=== PATIENT | male | born 1960 | race Caucasian/White ===

== ENCOUNTER 2017-08-14 19:40 | Emergency (ER) | payer BC ==
[2017-08-14 20:48] VITALS: RESP 16
--- NOTE | 2017-08-14 21:22 | ED PDOC ---
Arrival/HPI - General Chief Complaint: Male Genitourinary Time Seen by Provider: 08/14/17 21:15 Historian: Patient - History of Present Illness Narrative History of Present Illness (Text): 08/14/17 21:22 Gilbert Banks is a 56 year old male, whose past medical history includes CAD with 9 coronary stents and hypertension, who presents to the emergency department accompanied by complaining of recurrent hematuria. Patient states he began passing dark red hematuria earlier today and notes he has been experiencing recurrent hematuria since 02/2017. Patient states he was previously admitted at [facility] for similar complaint twice in the past, told he had an E. coli infection, and placed on antibiotics. Patient denies any abdominal pain, nausea, vomiting, urinary retention, chest pain, shortness of breath, headache, dizziness, or any other complaints. Urologist: Dr. Casper Vazquez Symptom Onset: Gradual Symptom Course: Unchanged Activities at Onset: Light Context: Home Past Medical History - Provider Review Nursing Documentation Reviewed: Yes Family/Social History - Physician Review Nursing Documentation Reviewed: Yes Family/Social History: Unknown Family HX Allergies/Home Meds Allergies/Adverse Reactions: Allergies No Known Allergies Allergy (Verified 08/14/17 20:41) Home Medications: Home Meds Medication Instructions Recorded Confirmed Enalapril Maleate [Vasotec] 10 mg PO BID 08/14/17 08/14/17 Metoprolol Tartrate [Lopressor] 50 mg PO DAILY 08/14/17 08/14/17 Paroxetine HCl [Paxil] 40 mg PO DAILY 08/14/17 08/14/17 Simvastatin [Zocor] 40 mg PO DAILY 08/14/17 08/14/17 Ticagrelor [Brilinta] 60 mg PO BID 08/14/17 08/14/17 Review of Systems - Physician Review All systems were reviewed & negative as marked: Yes - Review of Systems Constitutional: Normal. absent: Fevers Eyes: Normal ENT: Normal Respiratory: Normal. absent: SOB, Cough Cardiovascular: Normal. absent: Chest Pain Gastrointestinal: Normal. absent: Abdominal Pain, Diarrhea, Nausea, Vomiting Genitourinary Male: Hematuria. absent: Urinary Output Changes Musculoskeletal: Normal. absent: Back Pain, Neck Pain Skin: Normal. absent: Rash Neurological: Normal. absent: Headache, Dizziness Endocrine: Normal Hemo/Lymphatic: Normal Psychiatric: Normal Physical Exam Vital Signs Reviewed: Yes Vital Signs Temp Pulse Resp BP Pulse Ox 08/15/17 00:27 98 F 80 16 159/92 H 99 08/14/17 22:25 77 16 159/92 H 99 08/14/17 20:43 98.3 F 70 16 176/116 H 100 Temperature: Afebrile Blood Pressure: Hypertensive Pulse: Regular Respiratory Rate: Normal Appearance: Positive for: Well-Appearing, Non-Toxic, Comfortable Pain Distress: None Mental Status: Positive for: Alert and Oriented X 3 - Systems Exam Head: Present: Atraumatic, Normocephalic Pupils: Present: PERRL Extroacular Muscles: Present: EOMI Conjunctiva: Present: Normal Mouth: Present: Moist Mucous Membranes Neck: Present: Normal Range of Motion Respiratory/Chest: Present: Clear to Auscultation, Good Air Exchange. No: Respiratory Distress, Accessory Muscle Use Cardiovascular: Present: Regular Rate and Rhythm, Normal S1, S2. No: Murmurs Abdomen: No: Tenderness, Distention, Peritoneal Signs Back: Present: Normal Inspection Upper Extremity: Present: Normal Inspection. No: Cyanosis, Edema Lower Extremity: Present: Normal Inspection. No: Edema Neurological: Present: GCS=15, CN II-XII Intact, Speech Normal Skin: Present: Warm, Dry, Normal Color. No: Rashes Psychiatric: Present: Alert, Oriented x 3, Normal Insight, Normal Concentration Medical Decision Making ED Course and Treatment: 08/14/17 21:22 Impression: 56 year old male complaining of recurrent hematuria. Plan: -- Labs, blood type and screen -- Urinalysis, urine cultures -- Reassess and disposition Progress Notes: 08/14/17 22:[address] Casper Vazquez, who is aware and agrees with plan. 08/15/17 00:03 On re-evaluation, pt is well-appearing, in no acute distress. Pt prefers to follow up with Dr. Vazquez in the office. Pt spoke with Dr. Vazquez, who agrees with plan. Pt will be started on antibiotics and was advised to drink plenty of fluids. Pt's urine began to clear here in ER. - Lab Interpretations Lab Results: 08/14/17 22:03 08/14/17 22:03 Lab Results 08/14/17 23:51: Blood Type Confirm O POSITIVE 08/14/17 22:55: Blood Type O POSITIVE, Antibody Screen Negative, BBK History Checked No verified bt 08/14/17 22:03: Urine Color Red, Urine Appearance Cloudy, Urine pH 7.0, Ur Specific [place] 1.025, Urine Protein 100 H, Urine Glucose (UA) Negative, Urine Ketones Negative, Urine Blood Large H, Urine Nitrate Negative, Urine Bilirubin Negative, Urine Urobilinogen 0.2, Ur Leukocyte Esterase Small H, Urine RBC Tntc , Urine WBC Tntc, Ur Epithelial Cells 6 - 8, Urine Bacteria Mod 08/14/17 22:03: WBC 12.5 H, RBC 5.15, Hgb 14.5, Hct 41.7 L, MCV 81.0, MCH 28.2, MCHC 34.8, RDW 13.7, Plt Count 237, MPV 9.7 08/14/17 22:03: Sodium 140, Potassium 4.2, Chloride 101, Carbon Dioxide 30, Anion Gap 13, BUN 9, Creatinine 0.8, Est GFR ( Amer) > 60, Est GFR (Non- Af Amer) > 60, Random Glucose 99, Calcium 9.5, Total Bilirubin 0.3, AST 30, ALT 41, Alkaline Phosphatase 46, Total Protein 7.5, Albumin 4.3, Globulin 3.2, Albumin/Globulin Ratio 1.4 08/14/17 22:03: PT 11.3, INR 0.99, APTT 35.0 I have reviewed the lab results: Yes - Medication Orders Current Medication Orders: Discontinued Medications Cephalexin Monohydrate (Keflex) 500 mg PO ONCE STA PRN Reason: Protocol Stop: 08/15/17 00:11 Last Admin: 08/15/17 00:22 Dose: 500 mg - Scribe Statement The provider has reviewed the documentation as recorded by the Scribsam Cordero All medical record entries made by the Ricardoibsam were at my direction and personally dictated by me. I have reviewed the chart and agree that the record accurately reflects my personal performance of the history, physical exam, medical decision making, and the department course for this patient. I have also personally directed, reviewed, and agree with the discharge instructions and disposition. Disposition/Present on Arrival - Present on Arrival Any Indicators Present on Arrival: No History of DVT/PE: No History of Uncontrolled Diabetes: No Urinary Catheter: No History of Decub. Ulcer: No History Surgical Site Infection Following: None - Disposition Have Diagnosis and Disposition been Completed?: Yes Diagnosis: Hematuria, UTI (urinary tract infection) Disposition: HOME/ ROUTINE Disposition Time: 00:06 Patient Plan: Discharge Condition: STABLE Discharge Instructions (ExitCare): Urinary Tract Infection, Adult (DC), Blood in the Urine (Hematuria), Adult (DC) Additional Instructions: Take meds as prescribed/Drink plenty of liquids/Follow up with your urologist Dr.Shulman marroquin as per his instructions Prescriptions: Cephalexin [cephalexin] 500 mg PO BID #14 cap Referrals: Mauricio Vazquez MD [Primary Care Provider] - Follow up with primary Forms: [employer] (Armenian)
[2017-08-14 22:24] LABS: HEMOGLOBIN 14.5 g/dL (14.0-18.0); MEAN CORPUSCULAR HEMOGLOBIN 28.2 pg (25.0-35.0); MEAN CORPUSCULAR HGB CONC 34.8 g/dl (31.0-37.0); MEAN PLATELET VOLUME 9.7 fl (7.0-11.0); RBC 5.15 10^6/uL (3.5-6.1); RED CELL DISTRIBUTION WIDTH 13.7 % (11.5-14.5); WHITE BLOOD COUNT 12.5 10^3/ul (4.5-11.0)
[2017-08-14 22:35] LABS: ALB/GLOB RATIO 1.4 (1.1-1.8); ALBUMIN 4.3 g/dL (3.0-4.8); ALT/SGPT 41 U/L (7-56); AST/SGOT 30 U/L (17-59); BLOOD UREA NITROGEN 9 mg/dL (7-21); CALCIUM 9.5 mg/dL (8.4-10.5); GFR AFRICAN-AMERICAN > 60; GFR NON-AFRICAN AMERICAN > 60; INR 0.99 (0.93-1.08); PROTHROMBIN TIME 11.3 SECONDS (9.4-12.5)
[2017-08-14 22:40] LABS: URINE BILIRUBIN NEGATIVE (NEGATIVE); URINE BLOOD LARGE (NEGATIVE); URINE GLUCOSE (UA) NEGATIVE (NEGATIVE); URINE LEUKOCYTE ESTERASE SMALL Leu/uL (NEGATIVE); URINE PROTEIN 100 mg/dL (<30 mg/dL); URINE UROBILINOGEN 0.2 E.U./dL (<1 E.U./dL)
[2017-08-14 22:57] LABS: URINE COLOR RED (YELLOW)
[2017-08-14 22:58] LABS: URINE APPEARANCE CLOUDY (CLEAR)
[2017-08-14 23:01] LABS: URINE BACTERIA MOD (NEG); URINE RBC TNTC /hpf (0-2); URINE WBC TNTC /hpf (0-6)
[2017-08-15 00:26] VITALS: BP 159/92; O2SAT 99
[2017-08-15 00:28] VITALS: PULSE 80; TEMP 98
== END 2017-08-15 00:27 | disposition home or self-care (01) ==
LOC: MERGE 19:40 → ED 19:40
DX: N39.0 Urinary tract infection, site not specified (principal); R31.9 Hematuria, unspecified; I10 Essential (primary) hypertension; I25.10 Atherosclerotic heart disease of native coronary artery without angina pectoris

== ENCOUNTER 2017-09-20 21:32 | Emergency (ER) | payer BC ==
[2017-09-20 22:12] VITALS: RESP 18; BMI 29.2
[2017-09-20 23:07] LABS: URINE BILIRUBIN NEGATIVE (NEGATIVE); URINE BLOOD LARGE (NEGATIVE); URINE GLUCOSE (UA) NEGATIVE (NEGATIVE); URINE LEUKOCYTE ESTERASE TRACE Leu/uL (NEGATIVE); URINE PROTEIN 100 mg/dL (<30 mg/dL)
[2017-09-20 23:09] LABS: BASO # 0.06 K/mm3 (0.0-2.0); BASO % 0.7 % (0.0-3.0); EOS # 0.3 (0.0-0.7); GRAN # 4.11 (1.4-6.5); GRAN % 49.8 % (50.0-68.0); HEMOGLOBIN 14.9 g/dL (14.0-18.0); LYMPH # 3.4 (1.2-3.4); LYMPH % 40.8 % (22.0-35.0); MEAN CELL VOLUME 81.1 fl (80.0-105.0); MEAN CORPUSCULAR HEMOGLOBIN 27.9 pg (25.0-35.0); MEAN CORPUSCULAR HGB CONC 34.4 g/dl (31.0-37.0); MEAN PLATELET VOLUME 10.1 fl (7.0-11.0); MONO # 0.5 (0.1-0.6); MONO % 5.7 % (1.0-6.0); RBC 5.34 10^6/uL (3.5-6.1); RED CELL DISTRIBUTION WIDTH 13.8 % (11.5-14.5); WHITE BLOOD COUNT 8.3 10^3/ul (4.5-11.0)
[2017-09-20 23:11] LABS: URINE APPEARANCE CLOUDY (CLEAR); URINE COLOR RED (YELLOW)
[2017-09-20 23:17] LABS: URINE RBC TNTC /hpf (0-2); URINE WBC 0 - 2 /hpf (0-6)
[2017-09-20 23:20] LABS: ALBUMIN 4.3 g/dL (3.0-4.8); BLOOD UREA NITROGEN 9 mg/dL (7-21); CALCIUM 9.4 mg/dL (8.4-10.5); GFR AFRICAN-AMERICAN > 60; GFR NON-AFRICAN AMERICAN > 60
[2017-09-20 23:21] LABS: ALB/GLOB RATIO 1.2 (1.1-1.8); ALT/SGPT 33 U/L (7-56); AST/SGOT 26 U/L (17-59)
[2017-09-20 23:22] LABS: INR 0.92 (0.93-1.08); PARTIAL THROMBOPLASTIN TIME 34.7 Seconds (25.1-36.5); PROTHROMBIN TIME 10.5 SECONDS (9.4-12.5)
--- NOTE | 2017-09-20 23:24 | ED PDOC ---
Arrival/HPI - General Chief Complaint: Male Genitourinary Time Seen by Provider: 09/20/17 21:36 Historian: Patient - History of Present Illness Narrative History of Present Illness (Text): 09/20/17 22:22 57 year old male, whose past medical history CAD with 9 coronary stents and hypertension, who presents to the emergency department complaining of recurrent hematuria for the past [address] Jaquez prior to arrival. Patient denies any fever, chills, chest pain, shortness of breath, abdominal pain, nausea, vomiting, diarrhea, dysuria, back pain, neck pain, headache, dizziness, or any other complaints. Urologist: Dr. Casper Vazquez Time/Duration: Other (6 months) Symptom Onset: Gradual Symptom Course: Unchanged Activities at Onset: Light Context: Home Past Medical History - Provider Review Nursing Documentation Reviewed: Yes - Infectious Disease Hx of Infectious Diseases: None - Cardiac Other/Comment: Stents (9) - Psychiatric Hx Depression: Yes Hx Substance Use: No - Surgical History Hx Coronary Stent: Yes (9) Family/Social History - Physician Review Nursing Documentation Reviewed: Yes Family/Social History: No Known Family HX Smoking Status: Former Smoker Hx Alcohol Use: No Hx Substance Use: No Allergies/Home Meds Allergies/Adverse Reactions: Allergies No Known Allergies Allergy (Verified 08/14/17 20:41) Home Medications: Home Meds Medication Instructions Recorded Confirmed Enalapril Maleate [Vasotec] 10 mg PO BID 08/14/17 09/20/17 Metoprolol Tartrate [Lopressor] 50 mg PO DAILY 08/14/17 09/20/17 Paroxetine HCl [Paxil] 40 mg PO DAILY 08/14/17 09/20/17 Simvastatin [Zocor] 40 mg PO DAILY 08/14/17 09/20/17 Ticagrelor [Brilinta] 60 mg PO BID 08/14/17 09/20/17 Review of Systems - Physician Review All systems were reviewed & negative as marked: Yes - Review of Systems Constitutional: absent: Fevers, Other (Chills) Respiratory: absent: SOB Cardiovascular: absent: Chest Pain Gastrointestinal: absent: Abdominal Pain, Diarrhea, Nausea, Vomiting Genitourinary Male: Hematuria. absent: Dysuria Musculoskeletal: absent: Back Pain, Neck Pain Neurological: absent: Headache, Dizziness Physical Exam Vital Signs Reviewed: Yes Vital Signs Temp Pulse Resp BP Pulse Ox 09/21/17 01:47 98.5 F 65 18 167/98 H 100 09/21/17 01:33 65 18 168/100 H 100 09/20/17 22:03 98.0 F 69 18 162/101 H 99 Temperature: Afebrile Blood Pressure: Hypertensive Pulse: Regular Respiratory Rate: Normal Appearance: Positive for: Well-Appearing, Non-Toxic, Comfortable Pain Distress: None Mental Status: Positive for: Alert and Oriented X 3 - Systems Exam Head: Present: Atraumatic, Normocephalic Pupils: Present: PERRL Extroacular Muscles: Present: EOMI Conjunctiva: Present: Normal Mouth: Present: Moist Mucous Membranes Neck: Present: Normal Range of Motion Respiratory/Chest: Present: Clear to Auscultation, Good Air Exchange. No: Respiratory Distress, Accessory Muscle Use Cardiovascular: Present: Regular Rate and Rhythm, Normal S1, S2. No: Murmurs Abdomen: No: Tenderness, Distention, Peritoneal Signs Back: Present: Normal Inspection Upper Extremity: Present: Normal Inspection. No: Cyanosis, Edema Lower Extremity: Present: Normal Inspection. No: Edema Neurological: Present: GCS=15, CN II-XII Intact, Speech Normal Skin: Present: Warm, Dry, Normal Color. No: Rashes Psychiatric: Present: Alert, Oriented x 3, Normal Insight, Normal Concentration Medical Decision Making ED Course and Treatment: 09/20/17 22:23 Impression: 57 year old male presents complaining of recurrent hematuria for the past 6 months. Plan: -- CT Abdomen & pelvis IV Contrast -- Labs -- Urine Culture -- Urinalysis w/ Micro -- Reassess and disposition Prior Visits: Notes and results from previous visits were reviewed. On 08/14/17 patient came in complaining of recurrent hematuria. Patient was discharged. Progress Notes: 09/20/17 22:[address] Vazquez who is aware and agrees with the plan. Requesting CT with IV Contrast of the abdomen. EXAM: CT Abdomen and Pelvis With Intravenous Contrast Dictated and Authenticated by: Shae Hung MD 09/21/2017 1:29 AM IMPRESSION: - Very mild right hydroureteronephrosis and urothelial thickening. No causative obstructing stone seen. In an acute setting, the findings could be due to a recently passed stone versus a right-sided urinary tract infection. - See above for remaining findings. 09/21/17 01:48 On reevaluation the patient feels better and is in no acute distress. I have discussed the results and plan with the patient, who expresses understanding. Patient given the opportunity to ask question, all questions were answered and there is agreement with the plan to discharge the patient home. Patient is stable for discharge. Patient was instructed to follow up with physician/clinic in 1-2 days or return if symptoms persist/worsen or new concerning symptoms arise.. - Lab Interpretations Lab Results: 09/20/17 22:55 09/20/17 22:55 Lab Results 09/20/17 22:55: Sodium 143, Potassium 4.5, Chloride 104, Carbon Dioxide 28, Anion Gap 16, BUN 9, Creatinine 0.8, Est GFR ( Amer) > 60, Est GFR (Non- Af Amer) > 60, Random Glucose 110, Calcium 9.4, Total Bilirubin 0.4, AST 26, ALT 33, Alkaline Phosphatase 51, Total Protein 7.8, Albumin 4.3, Globulin 3.5, Albumin/Globulin Ratio 1.2 09/20/17 22:55: Urine Color Red, Urine Appearance Cloudy, Urine pH 7.0, Ur Specific [place] 1.020, Urine Protein 100 H, Urine Glucose (UA) Negative, Urine Ketones Trace H, Urine Blood Large H, Urine Nitrate Positive H, Urine Bilirubin Negative, Urine Urobilinogen 1.0 H, Ur Leukocyte Esterase Trace H, Urine RBC Tntc, Urine WBC 0 - 2, Ur Epithelial Cells None 09/20/17 22:55: PT 10.5, INR 0.92 L, APTT 34.7 09/20/17 22:55: WBC 8.3 D, RBC 5.34, Hgb 14.9, Hct 43.3, MCV 81.1, MCH 27.9, MCHC 34.4, RDW 13.8, Plt Count 228, MPV 10.1, Gran % 49.8 L, Lymph % (Auto) 40.8 H, [place] % (Auto) 5.7, Eos % (Auto) 3.0, Baso % (Auto) 0.7, Gran # 4.11, Lymph # (Auto) 3.4, [place] # (Auto) 0.5, Eos # (Auto) 0.3, Baso # (Auto) 0.06 I have reviewed the lab results: Yes - RAD Interpretation Radiology Orders: 09/20/17 22:32 ABD & PELVIS IV CONTRAST ONLY [CT] Stat - Scribe Statement The provider has reviewed the documentation as recorded by the Ricardoibe Brian Elder Provider Scribe Attestation: All medical record entries made by the Scribe were at my direction and personally dictated by me. I have reviewed the chart and agree that the record accurately reflects my personal performance of the history, physical exam, medical decision making, and the department course for this patient. I have also personally directed, reviewed, and agree with the discharge instructions and disposition. Disposition/Present on Arrival - Present on Arrival Any Indicators Present on Arrival: No History of DVT/PE: No History of Uncontrolled Diabetes: No Urinary Catheter: No History of Decub. Ulcer: No History Surgical Site Infection Following: None - Disposition Have Diagnosis and Disposition been Completed?: Yes Diagnosis: Hematuria Disposition: HOME/ ROUTINE Disposition Time: :25 Condition: GOOD Discharge Instructions (ExitCare): Blood in the Urine (Hematuria), Adult (DC) Additional Instructions: Thank you for letting us take care of you today. The emergency medical care you received today was directed at your acute symptoms. If you were prescribed any medication, please fill it and take as directed. It may take several days for your symptoms to resolve. Return to the Emergency Department if your symptoms worsen, do not improve, or if you have any other problems. Please contact your doctor or call one of the physicians/clinics you have been referred to that are listed on the Patient Visit Information form that is included in your discharge packet. Bring any paperwork you were given at discharge with you along with any medications you are taking to your follow up visit. Our treatment cannot replace ongoing medical care by a primary care provider (PCP) outside of the emergency department. Thank you for allowing the [facility] team to be part of your care today. Follow up with Dr. Vazquez early next week for follow up. Prescriptions: Ciprofloxacin [Cipro] 500 mg PO BID #14 tab Referrals: Mauricio Vazquez MD [Family Provider] - Follow up with primary Forms: [employer] (Albanian)
[2017-09-20] MEDS ORDERED: Iohexol 350 MG/100 ML VIAL ONE (23:44)
--- NOTE | 2017-09-21 01:30 | CT ---
EXAM: CT Abdomen and Pelvis With Intravenous Contrast EXAM DATE/TIME: 09/20/2017 10:32 PM CLINICAL HISTORY: 57 years old, male; Signs and symptoms; Other: Hematuria; Prior surgery; Surgery date: 6+ months; Surgery type: HX appendectomy; Additional info: Painless hematuria TECHNIQUE: Axial computed tomography images of the abdomen and pelvis with intravenous contrast. All CT scans at this facility use one or more dose reduction techniques, viz.: automated exposure control; ma/kV adjustment per patient size (including targeted exams where dose is matched to indication; i.e. head); or iterative reconstruction technique. Coronal and sagittal reformatted images were created and reviewed. CONTRAST: 100 mL of omnipaque 350 administered intravenously. COMPARISON: No relevant prior studies available. FINDINGS: LUNG BASES: No significant abnormality seen. MEDIASTINUM: Small hiatal hernia. ABDOMEN: LIVER: Fatty infiltration of the liver. GALLBLADDER AND BILE DUCTS: No CT evidence of acute cholecystitis. No evidence of significant biliary ductal dilatation. PANCREAS: No CT evidence of acute pancreatitis. SPLEEN: No acute abnormality of the spleen identified. ADRENALS: No acute abnormality of the adrenal glands identified. KIDNEYS AND URETERS: Very mild right hydroureteronephrosis and urothelial thickening. No causative obstructing stone is seen. Tiny, nonobstructing right renal stone. Incidental fluid density probable cystic right renal lesion, measuring less than 10 mm. Consistent with the [employer]?s Incidental Findings Committee Report, unless the patient?s specific circumstances suggest otherwise, any cystic kidney lesion less than 1.0 cm not otherwise characterized in this report as possessing suspicious or indeterminate imaging features is/are highly likely to be benign and do not require follow-up imaging or biopsy. STOMACH AND BOWEL: Colonic diverticulosis, with no evidence of acute diverticulitis. Otherwise, no significant abnormality of the bowel is identified. No evidence of small bowel obstruction. PELVIS: APPENDIX: Normal appendix is not seen, and there is a reported history of previous appendectomy. BLADDER: No acute abnormality of the bladder identified. REPRODUCTIVE: Prostate gland is enlarged. ABDOMEN and PELVIS: INTRAPERITONEAL SPACE: No evidence of free intraperitoneal air or fluid. BONES/JOINTS: No acute fractures or other acute bony abnormality noted. SOFT TISSUES: Small umbilical hernia, containing only fat. VASCULATURE: No evidence of abdominal aortic aneurysm. No evidence of periaortic hemorrhage. LYMPH NODES: No evidence of diffuse lymphadenopathy. IMPRESSION: - Very mild right hydroureteronephrosis and urothelial thickening. No causative obstructing stone seen. In an acute setting, the findings could be due to a recently passed stone versus a right-sided urinary tract infection. - See above for remaining findings.
[2017-09-21 01:33] VITALS: PULSE 65; O2SAT 100
[2017-09-21 03:21] VITALS: BP 167/98; TEMP 98.5
== END 2017-09-21 02:00 | disposition home or self-care (01) ==
LOC: ED 21:32
DX: R31.9 Hematuria, unspecified (principal); I10 Essential (primary) hypertension; I25.10 Atherosclerotic heart disease of native coronary artery without angina pectoris; Z87.891 Personal history of nicotine dependence
CPT/HCPCS: 74177; 80053; 81001; 85025; 85610; 85730; 87086; 99284; Q9967